=== PATIENT | female | born 1960 | race Two or more races ===

== ENCOUNTER 2025-05-03 15:55 | Outpatient (CLI) | payer OTHER ==
[2025-05-03 16:50] LABS: CREATININE SERUM 1.11 mg/dL (0.55-1.02)
== END 2025-05-03 16:03 | disposition home or self-care (01) ==
LOC: LAB 15:55
DX: K57.20 Diverticulitis of large intestine with perforation and abscess without bleeding (principal)

== ENCOUNTER 2025-05-04 07:06 | Outpatient (CLI) | payer OTHER | END 2025-05-04 07:07 | disposition home or self-care (01) | LOC: TOM 07:06 | PROVIDERS: ATTEND Colon & Rectal Surgery | DX: K57.20 Diverticulitis of large intestine with perforation and abscess without bleeding (principal); K57.32 Diverticulitis of large intestine without perforation or abscess without bleeding | CPT/HCPCS: 74177; Q9965 ==